=== PATIENT | female | born 1940 | race Caucasian/White ===

== ENCOUNTER 2022-07-15 14:20 | Outpatient (CLI) | payer MEDICARE, BC, SELFPAY ==
[2022-07-15 14:36] LABS: Albumin* 4.5 g/dL (3.3-5.0); Chloride* 96 mmol/L (96-114)
[2022-07-15 14:37] LABS: Potassium* 4.2 mmol/L (3.6-5.1); Sodium* 132 mmol/L (135-149)
[2022-07-15 14:39] LABS: Aspartate Amino Transferase* 32 U/L (12-35); Blood Urea Nitrogen* 20 mg/dL (7-30); Carbon Dioxide* 25 mmol/L (20-32); Cholesterol* 151 mg/dL (90-199); Creatinine* 0.8 mg/dL (0.5-1.5); Estimated Glomerular Filt Rate 75 ml/min; Glucose* 112 mg/dL (60-115); Total Protein* 7.4 g/dL (6.0-8.3); Triglycerides* 81 mg/dL (40-149)
[2022-07-15 14:40] LABS: Alanine Aminotransferase* 32 U/L (4-35); Alkaline Phosphatase* 90 U/L (40-150); Calcium* 11.2 mg/dL (8.4-10.6); HDL Cholesterol* 46 mg/dL (>=50); LDL Cholesterol Calculated 89 mg/dL (<100)
== END 2022-07-15 14:21 | disposition home or self-care (01) ==
PROVIDERS: PCP Family Medicine; Visit Provider Family Medicine
DX: Z00.00 Encounter for general adult medical examination without abnormal findings (principal); E78.5 Hyperlipidemia, unspecified; F41.9 Anxiety disorder, unspecified; G47.00 Insomnia, unspecified
CPT/HCPCS: 80053; 80061

== ENCOUNTER 2022-09-26 09:13 | Outpatient (CLI) | payer MEDICARE, BC, SELFPAY ==
--- NOTE | 2022-09-26 09:45 | CRLHL7_ITS ---
For Patients: As a result of the Cures Act, medical imaging exams and procedure reports are released immediately into your electronic medical record. You may view this report before your referring provider. If you have questions, please contact your health care provider. BILATERAL SCREENING MAMMOGRAM WITH COMPUTER-AIDED DETECTION AND TOMOSYNTHESIS TECHNIQUE: CC and MLO views were obtained. These mammographic images have been obtained using full-field digital technique. These mammographic images were interpreted with the benefit of computer-aided detection. Breast Tomosynthesis was used in this interpretation. COMPARISON FILM: 08/17/21, 08/16/20, 07/22/19. FINDINGS: There are scattered areas of fibroglandular density IMPRESSION: There is no radiographic evidence for malignancy. ASSESSMENT: BI-RADS Category 1: Negative RECOMMENDATION: Routine screening mammogram in 1 year. A lay language report of this examination will be provided to the patient. Daniel Dent M.D. Diagnostic Radiologist [email or web address] Transcribed: 7:50 p.m. MJ/Dictated by: Daniel Dent MD @ 09/26/2022 11:53:00 AM (Electronically Signed)
== END 2022-09-26 09:14 | disposition home or self-care (01) ==
LOC: MAMMO 09:13
PROVIDERS: PCP Family Medicine; Visit Provider Family Medicine
DX: Z12.31 Encounter for screening mammogram for malignant neoplasm of breast (principal)
CPT/HCPCS: 77063; 77067

== ENCOUNTER 2022-12-16 10:07 | Outpatient (CLI) | payer MEDICARE, BC, SELFPAY ==
[2022-12-16 14:31] LABS: Vitamin D 25 Hydroxy* 70 ng/mL (30-80)
[2022-12-16 14:37] LABS: Chloride* 97 mmol/L (96-114)
[2022-12-16 14:38] LABS: Albumin* 4.5 g/dL (3.3-5.0); Potassium* 4.2 mmol/L (3.6-5.1); Sodium* 132 mmol/L (135-149)
[2022-12-16 14:40] LABS: Carbon Dioxide* 24 mmol/L (20-32); Cholesterol* 139 mg/dL (90-199)
[2022-12-16 14:41] LABS: Alanine Aminotransferase* 42 U/L (4-35); Alkaline Phosphatase* 75 U/L (40-150); Aspartate Amino Transferase* 37 U/L (12-35); Bilirubin Total* 1.2 mg/dL (0.1-1.5); Blood Urea Nitrogen* 15 mg/dL (7-30); Calcium* 11.3 mg/dL (8.4-10.6); Creatinine* 0.7 mg/dL (0.5-1.5); Estimated Glomerular Filt Rate 87 ml/min; Glucose* 109 mg/dL (60-115); Total Protein* 7.2 g/dL (6.0-8.3); Triglycerides* 60 mg/dL (40-149)
[2022-12-16 14:42] LABS: HDL Cholesterol* 60 mg/dL (>=50); LDL Cholesterol Calculated 67 mg/dL (<100)
[2022-12-16 14:45] LABS: TSH With Reflex to FT4* 0.443 uIU/mL (0.270-4.200)
[2022-12-16 15:07] LABS: Creatinine Urine 142.8 mg/dL
[2022-12-16 15:10] LABS: Microalbumin Creatinine Ratio 10 mg/g (0-30); Microalbumin Urine 2 mg/dL
[2022-12-21 16:21] LABS: Vitamin B1, Whole Blood 138 nmol/L (70-180)
== END 2022-12-16 10:08 | disposition home or self-care (01) ==
PROVIDERS: PCP Family Medicine; Visit Provider Family Medicine
DX: E78.5 Hyperlipidemia, unspecified (principal); I10 Essential (primary) hypertension; Z78.9 Other specified health status; R53.83 Other fatigue; M85.80 Other specified disorders of bone density and structure, unspecified site
CPT/HCPCS: 80053; 80061; 82043; 82306; 82570; 83735; 84425; 84443

== ENCOUNTER 2023-01-02 09:37 | Outpatient (CLI) | payer MEDICARE, BC, SELFPAY ==
[2023-01-02 14:03] LABS: Chloride* 100 mmol/L (96-114); Potassium* 4.1 mmol/L (3.6-5.1); Sodium* 137 mmol/L (135-149)
[2023-01-02 14:05] LABS: Creatinine* 0.6 mg/dL (0.5-1.5); Estimated Glomerular Filt Rate 91 ml/min
[2023-01-02 14:06] LABS: Blood Urea Nitrogen* 12 mg/dL (7-30); Calcium* 10.7 mg/dL (8.4-10.6); Carbon Dioxide* 26 mmol/L (20-32); Glucose* 103 mg/dL (60-115)
[2023-01-02 14:20] LABS: Ethanol* < 0.01 % (0.01-0.03)
[2023-01-04 02:13] LABS: Urine Osmolality 514 mOsm/kg (50-800)
== END 2023-01-02 09:38 | disposition home or self-care (01) ==
PROVIDERS: PCP Family Medicine; Visit Provider Family Medicine
DX: I10 Essential (primary) hypertension (principal); E87.1 Hypo-osmolality and hyponatremia; E78.5 Hyperlipidemia, unspecified; F41.9 Anxiety disorder, unspecified; F32.A Depression, unspecified; Z78.9 Other specified health status
CPT/HCPCS: 80048; 82077; 83935

== ENCOUNTER 2023-01-07 10:41 | Emergency (ER) | payer MEDICARE, BC, SELFPAY ==
--- NOTE | 2023-01-07 | CRLHL7_ITS ---
For Patients: As a result of the Century Cures Act, medical imaging exams and procedure reports are released immediately into your electronic medical record. You may view this report before your referring provider. If you have questions, please contact your health care provider. INDICATION: Fall. Occipital trauma. TECHNIQUE: CT of the head without contrast. Coronal and sagittal reformats are included. COMPARISON: None. FINDINGS: Motion artifact degrades the exam superiorly. Allowing for this, no acute intracranial hemorrhage is present. No mass effect/midline shift. No hydrocephalus or extra-axial collections. Patchy hypoattenuation within the supratentorial white matter, typical for chronic microvascular ischemic change. Ex vacuo dilatation of the ventricular system from generalized parenchymal volume loss. No acute osseous abnormalities. Mastoid air cells and paranasal sinuses are clear. A high right parietal scalp subgaleal hematoma. IMPRESSION: IMPRESSION: 1. Motion artifact degrades the exam superiorly. Allowing for this, no acute intracranial hemorrhage or other acute intracranial abnormalities. Please note that all CT scans at this facility use dose modulation, iterative reconstruction, and/or weight-based dosing when appropriate to reduce radiation dose to as low as reasonably achievable. Dictated by Adolfo Benedict MD @ 01/07/2023 12:22:20 PM (Electronically Signed)
[2023-01-07 10:55] VITALS: BP 192/113; PULSE 84; RESP 18; TEMP 36.8; O2SAT 98; BMI 26.9
--- NOTE | 2023-01-07 10:58 | ED_ITS ---
HPI - Fall General Time Seen by Provider: 10:58 Date Seen: 01/07/23 Chief Complaint: Fall/Minor Trauma Stated Complaint: Fall/hit head Time Seen by Provider: 01/07/23 10:58 Source: patient, family, RN notes reviewed and old records reviewed Mode of arrival: wheelchair Limitations: no limitations History of Present Illness HPI Narrative: Patient is a very pleasant 82-year-old female with a history of multiple orthopedic surgeries, hypertension, anxiety, hyperlipidemia who comes to the emergency room for evaluation after a fall. It appears that patient was initia alonsoy coming for an outpatient head CT secondary to hyponatremia who fell in the parking lot of our facility. She did not lose consciousness. They did have a rapid response team that brought her directly to the emergency room. She presents with her . Nursing staff very concerned as patient is starting to ask repetitive questions. Patient tells me that she was walking in and went to step up onto the curb when she fell falling backwards striking her head. She remembers the event. She did not lose consciousness. She denies any visual changes including blurriness. She notes that the back of her head hurts and she has a bump there. She denies any neck pain. She has no prodromal symptoms to include chest pain or shortness of breath. She denies back injury or pain in the hips or buttocks. She denies any numbness or tingling at this time. At this time we do access further information via last note. Primary MD Dr. Parekh has concerns in her note regarding patient's alcohol use. Appears that she has been dealing with hyponatremia and she was here for outpatient head CT because of this. Related Data Home Medications Medication Instructions Recorded Confirmed acetaminophen 500 mg tablet 500 mg PO Q6H PRN 07/17/22 01/07/23 (Tylenol Extra Strength) aspirin 325 mg tablet 325 mg PO QDAY PRN 07/17/22 01/07/23 calcium carbonate 600 mg-vitamin cap PO 07/17/22 01/02/23 D3 10 mcg (400 unit) capsule multivit with 1 tab PO QDAY 07/17/22 01/02/23 ihyaxcet-oguy-DM-lutein 8 mg iron-400 mcg-300 mcg tablet (Centrum Silver Women) naproxen sodium 220 mg capsule 220 mg PO QDAY PRN 07/17/22 01/02/23 (Aleve) trazodone 50 mg tablet mg 01/07/23 Previous Rx's Medication Instructions Recorded albuterol sulfate 90 mcg/actuation 1 puff inhalation Q4H PRN 07/17/22 aerosol inhaler (ProAir HFA) shortness of breath or wheezing #8.5 grams amoxicillin 500 mg capsule 2,000 mg PO QDAY PRN dental 07/17/22 prophylaxis #12 caps atorvastatin 10 mg tablet 10 mg PO QPM #90 tabs 07/17/22 losartan 25 mg tablet 25 mg PO QDAY #90 tabs 07/17/22 lorazepam 0.5 mg tablet 0.25 mg PO QDAY PRN anxiety #26 12/05/22 tabs metoprolol succinate 25 mg 12.5 mg PO BID #30 tabs 01/02/23 tablet,extended release 24 hr sertraline 50 mg tablet 50 mg PO QDAY #30 tabs 01/02/23 Allergies Allergy/AdvReac Type Severity Reaction Status Date / Time nickel Allergy Mild Rash Verified 01/02/23 09:00 oxycodone Allergy Mild Rash, Verified 01/02/23 09:00 itching severe Review of Systems Status of ROS: Reports: 10 or more systems reviewed and unremarkable except as noted in History and below Const: Denies: fever or chills Eyes: Denies: change in vision or blurry vision ENMT: Denies: throat pain, neck pain, throat swelling, difficulty swallowing or hoarseness Cardio: Denies: chest pain, palpitations, swelling of feet/ankles, lightheadedness or shortness of breath with exertion Resp: Denies: shortness of breath or cough GI: Denies: abdominal pain, nausea, vomiting, diarrhea or difficulty swallowing : Denies: painful urination Musculo: Denies: back pain, neck pain, extremity pain or extremity swelling Neuro: Denies: headache, numbness in extremities, weakness in extremities, lack of coordination or dizziness Psych: Reports: anxiety Allergy/Immuno: Denies: throat swelling [facility] Medical History Carpal tunnel syndrome (08/06/11) Closed fracture of multiple ribs (04/27/13) Orthostatic hypotension Traumatic pneumohemothorax 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) Surgical History History of bilateral cataract extraction History of breast biopsy History of colonoscopy History of nasal septoplasty (08/06/11) History of repair of rotator cuff (08/06/11) History of right shoulder replacement 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) History of total knee replacement (05/01/10) Joint replaced Status post bunionectomy (08/06/11) Family History Other Alzheimers disease CHF (congestive heart failure) Social History Narrative: Non-smoker Smoking Status: Never smoker Do you use any of these nicotine containing products: None Second hand tobacco smoke exposure: No How often do you have a drink containing alcohol: 4 or more times a week How many standard drinks containing alcohol do you have on a typical day: 1 or 2 AUDIT-C Alcohol total score: 4 Non-prescribed substance use: denies use Little interest or pleasure in doing things: more than half the days Feeling down, depressed, or hopeless: more than half the days service: No Exam Narrative: Exam Narrative: Patient is a very pleasant 82-year-old female. She does have some repetitive statements regarding a head CT and the fact that she fell. Otherwise she is articulate and answering questions appropriately. GCS is 15. EOM is full and pupils are equal round reactive. Patient has a metzger tomatoes size soft tissue swelling on the posterior parietal scalp. No compromise of the skin. Range of motion of her neck is full and she has no midline cervical tenderness. Heart is with regular rate and rhythm and lungs are clear to auscultation bilaterally Palpation down thoracic and lumbar spine without discomfort. I do not note any ecchymosis at this time. No crepitus on chest wall. Moving all extremities. Strength and motor is intact. Face is symmetrical eyebrow raise intact. Sensation is intact. Const: Vital Signs, click to edit/add: Vital Signs - 24 hr 01/07/23 10:55 01/07/23 11:12 01/07/23 11:47 Temperature 98.2 F Pulse Rate [Pulse Oximeter] 84 78 78 Respiratory Rate 18 16 16 Blood Pressure [Le ft Upper Arm] 192/113 H 202/108 H 191/97 H Pulse Oximetry 98 98 98 Oxygen Delivery Me thod Room Air Room Air Room Air 01/07/23 12:53 01/07/23 13:35 Temperature Pulse Rate [Pulse Oximeter] 78 78 Respiratory Rate 16 16 Blood Pressure [Le ft Upper Arm] 174/107 H 175/99 H Pulse Oximetry 98 98 Oxygen Delivery Me thod Room Air Room Air Documenting provider has reviewed patient's vital signs: yes Course Course Hospital Course: We will start with head CT on this patient who is not on blood thinners and had no loss of consciousness but does have a history of alcohol use and given her age I think that this is a necessary thing to rule out any intracranial abnormality. Further she was due for a head CT this morning. I did ascertain that it was without contrast. Given her history of hyponatremia and alcohol use will also check labs to include CBC, LFTs, Chem panel, ETOH and urinalysis. Differential diagnosis includes closed head injury, intracranial bleed, skull fracture, soft tissue injury, hyponatremia, alcohol intoxication, fall. Patient denies any prodromal symptoms. Reevaluation(s) Reevaluation #1: Patient doing well. Has not had any issues with repeating questions after she returns from CT. Awaiting laboratory values. Reevaluation #2: Blood pressure noted to be persistently elevated. Patient states that she did take her medications this morning. Will give her additional dose of metoprolol 12.5 mg p.o. as well as acetaminophen 650 mg p.o. Reevaluation #3: Blood pressure noted to be improved. It looks like it is near baseline 170s over 90s. Son is now present. I did go over results of head CT as well as laboratory values. All reassuring at this point. Vital Signs Vital signs: Initial Vital Signs Temperature 98.2 F 01/07/23 10:55 Temperature Source Temporal Artery Scan 01/07/23 10:55 Pulse Rate 84 01/07/23 10:55 Pulse Rhythm 01/07/23 10:55 Respiratory Rate 18 01/07/23 10:55 Blood Pressure 192/113 H 01/07/23 10:55 Blood Pressure Mean 139 01/07/23 10:55 Blood Pressure Position Sitting 01/07/23 10:55 Pulse Oximetry 98 01/07/23 10:55 Oxygen Delivery Method 01/07/23 10:55 Vital Signs Temperature 98.2 F 01/07/23 10:55 Pulse Rate 84 01/07/23 10:55 Respiratory Rate 18 01/07/23 10:55 Blood Pressure 192/113 H 01/07/23 10:55 Pulse Oximetry 98 01/07/23 10:55 Oxygen Delivery Method 01/07/23 10:55 Temperature 98.2 F 01/07/23 10:55 Pulse Rate 78 01/07/23 13:35 Respiratory Rate 16 01/07/23 13:35 Blood Pressure 175/99 H 01/07/23 13:35 Pulse Oximetry 98 01/07/23 13:35 Oxygen Delivery Method 01/07/23 13:35 MDM - Fall MDM Narrative Medical decision making narrative: 1. Closed head injury-no evidence of skull fracture or intracranial bleeding. Recommend monitoring over the next 24 hours at home. Seek medical attention for vomiting, problems with balance, problems with mentation or vision. Avoid alcohol over the next week. With the exception of repeated questioning in the initial 1/2 hour of visit patient has been normal in her interactions. Would recommend frequent checks over the next 24 hours and returning as needed. 2. History of alcohol abuse-alcohol level 0 today. Recommend abstinence. 3. History of hyponatremia-sodium 131 today. Appears to have been around 132 and then normal at 137 on last check. I did speak to patient about using salt in her diet but she says she does not like that. This time do not feel need for medical intervention. Would recommend follow-up with her primary MD for recheck. 4. Disposition-home with son and . Returns/seek medical attention for worsening symptoms. I did contact patient's primary in regards to today's visit. Medical Records Attestation: I reviewed the patient's medical records. Lab Data Attestation: I reviewed the patient's lab results. Labs: Lab Results 01/07/23 01/07/23 Range/Units 11:37 11:37 WBC 7.59 (4.50-11.00) K/uL RBC 3.98 L (4.00-5.20) m/uL Hgb 13.5 (12.0-16.0) gm/dL Hct 39.0 (33.0-51.0) % MCV 98 (80-100) fL MCH 34 (26-34) pg MCHC 35 (32-36) gm/dL RDW Coeff of Maris 12.2 (11.5-15.5) % Plt Count 281 (140-440) K/uL Neut % (Auto) 73.7 H (42.0-72.0) % Lymph % (Auto) 15.0 L (20-44) % Gila % (Auto) 9.6 (0.0-11.0) % Eos % (Auto) 1.2 (0.0-7.0) % Baso % (Auto) 0.4 (0.0-3.0) % Neut # (Auto) 5.60 (1.7-7.0) K/uL Lymph # (Auto) 1.10 (0.90-2.90) K/uL Gila # (Auto) 0.70 (0.00-0.90) K/UL Eos # (Auto) 0.09 (0.00-0.50) K/uL Baso # (Auto) 0.03 (0.00-0.30) K/uL Sodium 131 L (135-149) mmol/L Potassium 4.2 (3.6-5.1) mmol/L Chloride 99 (96-114) mmol/L Carbon Dioxide 24 (20-32) mmol/L BUN 10 (7-30) mg/dL Creatinine 0.5 (0.5-1.5) mg/dL Estimated Creat Clear 35.49 Estimated GFR 95 ml/min Glucose 129 H (60-115) mg/dL Calcium 10.4 (8.4-10.6) mg/dL Total Bilirubin 0.8 (0.1-1.5) mg/dL Direct Bilirubin 0.2 (0.0-0.5) mg/dL AST 42 H (12-35) U/L ALT 37 H (4-35) U/L Alkaline Phosphatase 68 (40-150) U/L Total Protein 7.3 (6.0-8.3) g/dL Albumin 4.4 (3.3-5.0) g/dL Ethyl Alcohol < 0.01 L (0.01-0.03) % Imaging Data CT scan - head: Attestation: I have reviewed the pertinent imaging results. My impression: I do not note any acute intracranial bleed or skull fracture. Radiologist's impression: Motion artifact degrades the exam superiorly. Allowing for this, no acute intracranial hemorrhage is present. No mass effect/midline shift. No hydrocephalus or extra-axial collections. Patchy hypoattenuation within the supratentorial white matter, typical for chronic microvascular ischemic change. Ex vacuo dilatation of the ventricular system from generalized parenchymal volume loss. No acute osseous abnormalities. Mastoid air cells and paranasal sinuses are clear. A high right parietal scalp subgaleal hematoma. IMPRESSION: ?IMPRESSION: ? 1. Motion artifact degrades the exam superiorly. Allowing for this, no acute intracranial hemorrhage or other acute intracranial abnormalities Discharge Plan Discharge Clinical Impression: Closed head injury, Fall, Chronic hyponatremia Patient Disposition: Home w/ Parent or Adult Condition: Improved Additional Instructions: Monitor for changes in mentation, personality, balance. Return to the emergency room if this would occur. Seek medical attention also for vomiting, visual changes and as needed. Avoid alcohol during this next week because of the head injury. Seek medical attention for new discomfort or pain. Tylenol may be used for discomfort as needed. Your head CT was negative for any fracture or bleeding today. Your sodium was 131 which is still slow somewhat low and should continue to be followed by your primary MD. Feel free to salt your foods. Follow-up with primary MD for recheck of blood pressure. Prescriptions: No Action aspirin 325 mg tablet 325 mg PO QDAY PRN naproxen sodium [Aleve] 220 mg capsule 220 mg PO QDAY PRN acetaminophen [Tylenol Extra Strength] 500 mg tablet 500 mg PO Q6H PRN calcium carbonate-vitamin D3 600 mg-10 mcg (400 unit) capsule PO Centrum Silver Women 8 mg iron-400 mcg-300 mcg tablet 1 tab PO QDAY atorvastatin 10 mg tablet 10 mg PO QPM Qty: 90 4RF losartan 25 mg tablet 25 mg PO QDAY Qty: 90 4RF albuterol sulfate [ProAir HFA] 90 mcg/actuation HFA aerosol inhaler 1 puff inhalation Q4H PRN (Reason: shortness of breath or wheezing) Qty: 8.5 1RF amoxicillin 500 mg capsule 2,000 mg PO QDAY PRN (Reason: dental prophylaxis) Qty: 12 2RF sertraline 50 mg tablet 50 mg PO QDAY Qty: 30 3RF metoprolol succinate 25 mg tablet extended release 24 hr 12.5 mg PO BID Qty: 30 1RF lorazepam 0.5 mg tablet 0.25 mg PO QDAY PRN (Reason: anxiety) Qty: 26 0RF Rx Instructions: 26 tablets must last one year; plan to wean from medication trazodone 50 mg tablet Label Comments: TAKE 1 TABLET BY MOUTH EVERY DAY NEEDED FOR INSOMNIA Follow Up/Referrals: Ana Parekh DO [Primary Care Provider] - Stand Alone [facility]: [facility] Info Instructions
[2023-01-07 11:12] VITALS: BP 202/108; PULSE 78; RESP 16; O2SAT 98
[2023-01-07 11:47] VITALS: BP 191/97; PULSE 78; RESP 16; O2SAT 98
[2023-01-07 11:55] LABS: Basophils Absolute Auto 0.03 K/uL (0.00-0.30); Basophils Percent Auto 0.4 % (0.0-3.0); Eosinophils Absolute Auto 0.09 K/uL (0.00-0.50); Eosinophils Percent Auto 1.2 % (0.0-7.0); Hemoglobin* 13.5 gm/dL (12.0-16.0); Immature Granulocytes Abs Auto 0.01 K/uL (0.00-0.30); Immature Granulocytes Pct Auto 0.1 %; Mean Corpuscular HGB Conc 35 gm/dL (32-36); Mean Corpuscular Hemoglobin 34 pg (26-34); Mean Corpuscular Volume 98 fL (80-100); Monocytes Percent Auto 9.6 % (0.0-11.0); Neutrophils Percent Auto 73.7 % (42.0-72.0); Platelet Count* 281 K/uL (140-440); RDW Coefficient of Variation % 12.2 % (11.5-15.5); Red Blood Count 3.98 m/uL (4.00-5.20); White Blood Count* 7.59 K/uL (4.50-11.00)
[2023-01-07 12:02] LABS: Slide Review Reflex No
[2023-01-07 12:08] LABS: Albumin* 4.4 g/dL (3.3-5.0)
[2023-01-07 12:09] LABS: Chloride* 99 mmol/L (96-114); Potassium* 4.2 mmol/L (3.6-5.1); Sodium* 131 mmol/L (135-149)
[2023-01-07 12:11] LABS: Aspartate Amino Transferase* 42 U/L (12-35); Bilirubin Direct* 0.2 mg/dL (0.0-0.5); Bilirubin Total* 0.8 mg/dL (0.1-1.5); Carbon Dioxide* 24 mmol/L (20-32); Creatinine* 0.5 mg/dL (0.5-1.5); Est. Creatinine Clearance* 35.49; Estimated Glomerular Filt Rate 95 ml/min; Total Protein* 7.3 g/dL (6.0-8.3)
[2023-01-07 12:12] LABS: Alanine Aminotransferase* 37 U/L (4-35); Alkaline Phosphatase* 68 U/L (40-150); Blood Urea Nitrogen* 10 mg/dL (7-30); Calcium* 10.4 mg/dL (8.4-10.6); Glucose* 129 mg/dL (60-115)
[2023-01-07 12:16] LABS: Ethanol* < 0.01 % (0.01-0.03)
[2023-01-07] MEDS: METOPROLOL TARTRATE 25 MG TABLET 12.5 MG PO (12:51)
[2023-01-07] MEDS: ACETAMINOPHEN 325 MG TABLET 650 MG PO (12:51)
[2023-01-07 12:53] VITALS: BP 174/107; PULSE 78; RESP 16; O2SAT 98
[2023-01-07 13:35] VITALS: BP 175/99; PULSE 78; RESP 16; O2SAT 98
--- NOTE | 2023-01-07 13:37 | ED.NURSE ---
Tolerated a half a sandwich. Recheck DIVYA PHILIP notified.
--- NOTE | 2023-01-07 13:51 | ED.NURSE ---
patient unable to void during her stay. Did tolerate food and water without nausea. Does feel some unbalanced but was able to stand and pivot and take a few steps. Son was present and driving patient and her home. Patients son verbalized that discussions of moving into an commercial escrow assistant living have been occuring.
== END 2023-01-07 13:53 | disposition home or self-care (01) ==
PROVIDERS: Emergency Provider Family Medicine; PCP Family Medicine
DX: S09.90XA Unspecified injury of head, initial encounter (principal); E87.1 Hypo-osmolality and hyponatremia; W19.XXXA Unspecified fall, initial encounter
CPT/HCPCS: 36415; 70450; 80048; 80076; 81001; 82077; 85025; 99284; 99285; A9270

== ENCOUNTER 2023-04-03 06:27 | Outpatient (CLI) | payer MEDICARE, BC, SELFPAY ==
[2023-04-03 06:53] VITALS: BP 194/101; PULSE 79; RESP 16; O2SAT 99
--- NOTE | 2023-04-03 07:47 | PM.ORPRC ---
Procedure Note Date of procedure: 04/03/23 Procedure: SURGEON: Ace James MD LABEL PRESS OPERATOR: Gilma Macias PA-C PREOPERATIVE DIAGNOSIS: Left hip abductor tendinopathy/greater trochanteric bursitis POSTOPERATIVE DIAGNOSIS: Left hip abductor tendinopathy/greater trochanteric bursitis NAME OF OPERATION: Percutaneous tenotomy ANESTHESIA: Local ESTIMATED BLOOD LOSS: 2 mL. COMPLICATIONS: None. SPECIMENS: None. DRAINS: None. PREOPERATIVE ANTIBIOTICS: None INDICATIONS: The patient is a 82-year-old with a history of left hip pain secondary to the above diagnoses. Despite appropriate non operative management, they continue to have symptoms. Operative intervention was recommended. The risks, benefits and expected outcomes were discussed in detail. These included but were not limited to: Infection, bleeding, injury to blood vessel or nerve, venous thromboembolism. All questions were answered to their satisfaction. PROCEDURE: The patient was placed in the lateral decubitus position. The left hip was imaged in the long and short axes with the ultrasound transducer. Normal acoustic landmarks were identified. We then sterilely prepped and draped the skin, and used a sterile probe cover with sterile gel. Local anesthesia was established with 10 mL of a solution containing 2 % lidocaine without epinephrine, 0.5% Marcaine without epinephrine and sodium bicarbonate. An 11 blade was used to incise the skin. The Tenex TX 2 micro tip was used to treat the abductor tendon for a total of 4 minutes and 28 seconds. The incision was Steri-Stripped closed. A dry dressing was applied. Sponge and needle counts were correct x2. The patient tolerated the procedure well. There were no apparent complications. They were discharged to home in satisfactory condition. PLAN: The patient may weightbear as tolerates. Tylenol can be used for pain/discomfort. They may ramp up activity as the hip will allow. They will follow up in the office in 6 weeks to assess their progress. For
[2023-04-03 07:48] VITALS: BP 155/116; PULSE 77; RESP 16; O2SAT 99
== END 2023-04-03 07:54 | disposition home or self-care (01) ==
PROVIDERS: PCP Family Medicine; Visit Provider Orthopaedic Surgery
DX: M70.62 Trochanteric bursitis, left hip (principal); M76.892 Other specified enthesopathies of left lower limb, excluding foot
CPT/HCPCS: 27006; 76942; J3490

== ENCOUNTER 2023-06-30 10:17 | Outpatient (CLI) | payer MEDICARE, BC, SELFPAY | END 2023-06-30 10:18 | disposition home or self-care (01) | PROVIDERS: PCP Family Medicine; Visit Provider Family Medicine | DX: R63.4 Abnormal weight loss (principal); I10 Essential (primary) hypertension; E78.5 Hyperlipidemia, unspecified; E87.1 Hypo-osmolality and hyponatremia | CPT/HCPCS: 80053; 82043; 82077; 82570; 84443; 86140 ==

== ENCOUNTER 2023-07-08 11:00 | Outpatient (RCR) | payer MEDICARE, BC, SELFPAY ==
--- NOTE | 2023-05-20 12:52 | PT.OPE ---
PT Ericka Outpatient Eval PT [facility] Outpatient Eval Start: 05/20/23 12:26 Freq: Status: Active Protocol: Document 05/20/23 12:27 ANGE (Rec: 05/20/23 12:48 ANGE Desktop) E-signed By Eliel Hector, PT, ATC Physical Therapy Outpatient Evaluation Insurance Information Insurance Name Medicare B Medical Diagnosis M70.72 other bursitis of hip, left Z98.890 other specified postprocedural states. Treating Diagnosis L hip pain Referring MD James Subjective Subjective L hip percutaneous tenotomy 10/16. Long history of intense left lateral hip pain-tendonits and bursitis prior to procedure in March. Symptoms have not improved at all since the procedure. All WB'ing and active L hip motion creates discomfort. Unable to lay upon the L hip in bed and struggles with bed mobility. Using cold packs, Tylenol and Advil for pain yet none seem to make improvement. Frustrated she wasn't prescribed a pain killer. She currently resides by herself in her home with care provision as needed from her child. in in a memory care unit. She drove herself to treatment today but hadn't driven in many weeks. PMHx includes L and R TKA's, L RANJITH an a partial L shld replacement. Pain Comments High /10 Low 03/03 Date of Last Physician Visit 05/14/23 Date of Surgery (If applicable) 04/03/23 Current Work Status Retired,Unemployed Preferred Name Holley Precautions Treatment Precautions/Contraindications Note: Holley appeared very depressed and easily upset/ emotional. I think the relentless hip pain coupled with committing her to a memory care center are the major contributing factors. Weight Bearing Status Non-Weight Bearing Therapy Limitations/Systems Review Not Limited Objective Range of Motion PROM R and L hip WFL's L hip horizontal adduct and ER end range were pain producing . Strength L hip ABD and FLEX weakness, 4 /5 and pain producing. Swelling Non evident. Palpation Very tender over L hip gluteal muscles-gluteus medius, justyna, minimus, piriformis and TFL. Tightness felt through L ITB complex. Balance & Gait Walks with shortened stride length, hip hikes on both sides and L lateral lean with L WB'ing. Posture L knee valgus-moderate. Assessment Assessment/Impression Holley is well known in PT from previous attendance for herself and when accompanying her with his care. She does not appear to be doing well with her recovery following L hip percutaneous tenotomy on 04/03/23. I feel her depression has added to the difficulty with recovery. Skilled PT is recommended to address her L hip pain, the soft tissue tightness in the L gluteal/hip complex as well as weakness present. She benefitted from todays manual therapy of soft tissue manipulation, passive stretching and eccentric hip ABD exercise. Primary Functional Limitations All transfers and bed mobility . Standing to prepare meals. Walking Stair ascent/descent Self care. Plan of Care Rehabilitation Potential Fair Physical Therapy Goals 1.Reduce L lateral hip pain x 50% permitting improved ability with hip AROM during transfers and bed mobility. 2.To walk x 500 feet with increased R and L LE stride length, more upright trunk position and less left lateral lean. 3.To stand x 10 min.s while preparing meals with pain of 4 /10 or less. Coordination/Communication With Referral Source Treatment Plan/Direct Interventions Electrical Stimulation,Gait Training,Ice/Cold/ Vasopneumatic,Joint Mobilization,Manual Therapy, Self-Care/Home Management, Therapeutic Activities, Therapeutic Exercises, Ultrasound Frequency/Duration 1-2x per week 8-12 weeks Patient Will Be Discharged From Therapy Independent w/HEP, Independently Progressing Evaluation Billing Untimed Code Treatment Minutes 30 PT Eval No Charge No Complexity Low Certification Information Initial Certification Date 05/20/23 Ending Certification Date 08/20/23 Provider Signature Shows Agreement With POC & Medical Necessity Physician Signature & Date Requested Please Sign/Date Here Physician Comment/Change : Physician NPI Number #
--- NOTE | 2023-07-09 16:32 | OT.OPGNE ---
OT Outpatient General/Neuro Eval OT Outpatient General/Neuro Eval Start: 07/08/23 17:50 Freq: Status: Active Protocol: Document 07/08/23 17:51 CHRIS (Rec: 07/08/23 18:09 CHRIS Desktop) E-signed By Shaila Jason OTR/L, CLT OT Outpatient Evaluation Details Type Type Eval Complexity Medium Insurance Information Insurance Information Insurance Information [employer] Outpatient History/Precautions Medical/Functional History Medical History Reviewed Yes Prior Level of Function/Mobility Patient ambulates w/o AD, although she should be using a walker at all times and falls frequently. Shuffle gait with freezing episodes that has a Parkinson's like pattern Patient reports that she holds on to anything and everything and deeply fearful of falling (*had a fall yesterday at the doctor's office: copy of nurses note: Today upon arrival at the clinic, she reached forward to press the handicap button to open the door and fell backwards onto her back side. She did not hit her head on the way down. She was able to get up with 2 people assistance and feels nervous while walking now. *Patient drove herself to and from todays apt. Current Condition Date of Onset unknown, patient scheudled for brain/head MRI on 07/15/23 Physician Authorized Visits Ana Parekh DO Social History Type of Dwelling Townhouse Lives With: Alone Employment Status Retired Hobbies Watching TV, reading, going out to eat (but currently not doing) Oriented Patient Orientation Person,Place,Time Precautions General Precautions Patient was unable to name all her medications, DIL fills her medication box. Per patient report, she does not forget to take her medications . acetaminophen (Tylenol Extra Strength) 500 mg PO Q6H PRN albuterol sulfate 90 mcg/ actuation (ProAir HFA) 1 puff inhalation Q4H PRN amoxicillin 2,000 mg (4 x 500 mg) PO QDAY PRN aspirin 325 mg PO QDAY PRN atorvastatin 10 mg PO QPM calcium carbonate-vitamin D3 600 mg-10 mcg (400 unit) caps PO food supplemt, lactose-reduced (Ensure Active High Protein oral liquid) 1 ea PO TIDWMEAL ibuprofen 200 mg PO Q6H PRN lorazepam 0.25 mg (1/2 x 0.5 mg) PO QDAY PRN losartan 25 mg PO QDAY metoprolol succinate ER 12.5 mg (1/2 x 25 mg) PO BID kfeykfvt-mda-zgld-FA-vit K-lut 8 mg iron-400 mcg-50 mcg ( Centrum Silver Women) 1 tab PO QDAY sertraline 50 mg PO QDAY Prior Medical History Prior Medical History 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 James) Z98.890 - Other specified postprocedural states (ICD-10) Alcohol use (Acute) Daily drinker Z78.9 - Other specified health status (ICD-10) Osteopenia (Acute 05/01/10) M85.80 - Other specified disorders of bone density and structure, unspecified site ( ICD-10) Osteoarthritis of both thumbs (Chronic) [facility] M18.0 - Bilateral primary osteoarthritis of first carpometacarpal joints (ICD-10 ) Insomnia (Acute 05/01/10) G47.00 - Insomnia, unspecified (ICD-10) Hyponatremia (Acute 05/01/10) E87.1 - Hypo-osmolality and hyponatremia (ICD-10) Hypertension (Acute 05/01/10) I10 - Essential (primary) hypertension (ICD-10) Hyperlipidemia (Acute 05/01/10 ) E78.5 - Hyperlipidemia, unspecified (ICD-10) Asthma (Acute 08/06/11) Well controlled J45.909 - Unspecified asthma, uncomplicated (ICD-10) Anxiety (Acute 05/01/10) EMA, worsened by adjustment disorder with with dementia F41.9 - Anxiety disorder, unspecified (ICD-10) Patient Subjective Subjective Patient Subjective I know I'm here so you can give me a cognitive test Balance Assessment Comments Balance Comments Falls Self Efficacy Scale 42 points on EVAL HIGH RISK FOR FALLS-falls multiple times per week Home Maintenance Assessment ADL Oral Care Ability Independent Bathing Ability Independent Eating (Feeding) Ability Independent Upper Body Dressing Ability Independent Lower Body Dressing Ability Independent Grooming Ability Independent Toileting Ability Independent Ambulation Ability Independent Home Management Meal Preparation Ability Independent Cleaning Ability Moderate Assistance Shopping Ability Moderate Assistance Assistance Assistance Currently Received Son and USMAN are helping with IADLs, dropping off items, running errands. Vision/Hearing Vision Tracking WNL Saccades WNL Near Point of Convergence WNL Vision Changes Low Vision Vision Changes Comments Wears glasses Hearing Hearing Hard of Hearing Assessment Assessment Assessment 82 year old female, referred to OT for Cognitive testing and overall health management after undergoing multiple life changes and event ( moved into memory [facility] unit at [facility] this spring). PLAN: Through skilled therapy intervention that will include cognitive testing, balance, fall prevention, education/ teaching/training and development of a HEP, patient will be able to return to meaningful roles through physical, cognitive, mental and social interventions for greater quality of life and in order to remain living in the least restrictive environment (patient wishes to remain living independent in her townhouse). Occupational Therapy Treatment Plan - OP Potential Rehabilitation Potential Good Set Goals Goals Set with Patient Yes Goals Goals GOAL 1: The patient will actively engage in cognitive assessments (such as the CPT) to determine level of functional problem solving and safety awareness relative to discharge recommendations. ( MOCA on EVAL was ) GOAL 2: Patient will improve dual task ability as demonstrated by ability to carry a glass of water without spillage and no LOB for 30 feet distances. GOAL 3: Patient to demonstrate improvement in limits of stability in forward directions as evidenced by 25% improvement in functional reach score and decrease losses of balance and falls while engaging in activities that require reaching such as cooking, dressing and laundry. GOAL 4: Patient will demonstrate a lower risk for falls as evident by a lower score on the Falls Self Efficacy Scale ( 42 points on EVAL) Treatment Plan Treatment Plan Evaluation,Manual Therapy, Therapeutic Exercise,Self-Care /Home Management,Caregiver Training,Education,Functional Cognitive Skil,Neuromuscular Reeducation Expected Frequency 1-2x Week Expected Duration 8-10 Weeks Comment Summary Falls Self Efficacy Scale 42 points on EVAL Certification Certification I Certify That: Therapy Services Provided, Therapy Plan Established, Therapy Plan Reviewed Recertification Information Recertification Information Initial Certification Date 07/08/23 Recertification Due Date 10/06/23 Provider Signature Shows Agreement With POC & Medical Necessity Physician Comment/Change Comment or Changes Physician NPI Number #
== END 2023-10-09 15:19 | disposition home or self-care (01) ==
PROVIDERS: PCP Family Medicine; Visit Provider Family Medicine
DX: M70.72 Other bursitis of hip, left hip (principal); F10.27 Alcohol dependence with alcohol-induced persisting dementia; R63.4 Abnormal weight loss; Z98.890 Other specified postprocedural states; M25.552 Pain in left hip; Z51.89 Encounter for other specified aftercare
CPT/HCPCS: 97110; 97140; 97161; 97166; 97530; 97535

== ENCOUNTER 2023-07-15 09:49 | Outpatient (CLI) | payer MEDICARE, BC, SELFPAY ==
--- NOTE | 2023-07-15 10:15 | CRLHL7_ITS ---
For Patients: As a result of the Century Cures Act, medical imaging exams and procedure reports are released immediately into your electronic medical record. You may view this report before your referring provider. If you have questions, please contact your health care provider. INDICATION: Dementia. COMPARISON: 01/07/2023. TECHNIQUE: Multiplanar T1, T2, FLAIR and diffusion-weighted imaging. FINDINGS: Mild generalized volume loss more pronounced about the inferior frontal lobes, temporal lobes common sylvian fissures. Disproportionate moderate dilatation of the lateral and 3rd ventricles. T2/FLAIR signal hyperintense along the margins of the lateral ventricles may represent transependymal CSF flow. On axial T2 weighted imaging, there is a flow-void within the sylvian aqueduct suggesting hyperdynamic flow. Overall, findings may represent changes of chronic compensated hydrocephalus or normal pressure hydrocephalus in the correct clinical setting. Scattered patchy foci of T2/FLAIR signal hyperintense within the white matter both supra hemispheres consistent with chronic deep white matter small vessel ischemic changes. No intracranial hemorrhage. Intracranial vascular flow voids are preserved. No mass effect or midline shift. No restricted diffusion to suggest acute ischemia. No susceptibility artifact of remote hemorrhage. Bilateral orbits are unremarkable. Normal appearing sella. Visualized paranasal sinuses and mastoid air cells are unremarkable. IMPRESSION: 1. No acute intracranial abnormality. 2. Mild generalized volume loss and disproportionate moderate dilatation of the lateral 3rd ventricles. 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 3. Chronic deep white matter small vessel ischemic changes. 4. No acute or chronic intracranial hemorrhage Dictated by Rashawn Townsend MD @ 07/15/2023 2:49:42 PM (Electronically Signed)
--- NOTE | 2023-07-15 11:00 | CRLHL7_ITS ---
For Patients: As a result of the Century Cures Act, medical imaging exams and procedure reports are released immediately into your electronic medical record. You may view this report before your referring provider. If you have questions, please contact your health care provider. HISTORY: Left hip pain. TECHNIQUE: Noncontrast CT of the left hip. COMPARISON: Radiographs 03/17/2023. FINDINGS: There is a left total hip arthroplasty. There is a superior lateral position of the femoral head within the acetabular component noted on coronal image #17 of series 5, a finding seen with polyethylene wear. Area of osteolysis is noted involving the anterior superior to superior lateral acetabulum spanning an approximately 3 cm anterior/posterior by 2.5 cm medial/lateral by 1.2 cm craniocaudad extent. There is prominent anteversion of the acetabular component which may indicate that it is frankly loose and has rotated. On the femoral side, there is some bony erosion involving the medial aspect of the greater trochanter along the proximal margin of the prosthesis. Similar finding is present along the proximal medial margin of the femoral component with both areas likely reflecting limited osteolysis. The femoral component does not appear frankly detached. There is no acute periprosthetic fracture. - On the contralateral right side, there is a total hip arthroplasty. There also findings suggesting polyethylene wear on that side. There is some lucency involving the superior lateral acetabulum possibly indicating osteolysis. The right-sided prosthesis is not fully evaluated by this left hip CT. - Degenerative changes of the pubic symphysis and sacroiliac joints. Colonic diverticulosis. Uterine calcifications likely relate to calcified fibroids. IMPRESSION: 1. 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 No acute periprosthetic fracture. Given the orientation of the acetabular component it may be loose and may have rotated previously. 2. On the contralateral right side, there also findings of polyethylene wear and potentially osteolysis of the acetabulum. The right hip replacement is not fully evaluated by this left hip CT. Please note that all CT scans at this facility use dose modulation, iterative reconstruction, and/or weight-based dosing when appropriate to reduce radiation dose to as low as reasonably achievable. Dictated by Vivek Huffman MD @ 07/15/2023 4:16:01 PM (Electronically Signed)
== END 2023-07-15 09:50 | disposition home or self-care (01) ==
LOC: MRI 09:50
PROVIDERS: PCP Family Medicine; Visit Provider Family Medicine
DX: F03.90 Unspecified dementia, unspecified severity, without behavioral disturbance, psychotic disturbance, mood disturbance, and anxiety (principal); I67.82 Cerebral ischemia; M25.552 Pain in left hip
CPT/HCPCS: 70551; 73700

== ENCOUNTER 2023-08-21 13:41 | Outpatient (REF) | payer MEDICARE, BC, SELFPAY ==
[2023-08-21 14:05] LABS: Basophils Absolute Auto 0.03 K/uL (0.00-0.30); Basophils Percent Auto 0.7 % (0.0-3.0); Eosinophils Percent Auto 2.2 % (0.0-7.0); Hematocrit 40.3 % (33.0-51.0); Immature Granulocytes Abs Auto 0.01 K/uL (0.00-0.30); Immature Granulocytes Pct Auto 0.2 %; Lymphocytes Absolute Auto 1.04 K/uL (0.90-2.90); Lymphocytes Percent Auto 22.9 % (20-44); Mean Corpuscular HGB Conc 32 gm/dL (32-36); Mean Corpuscular Hemoglobin 31 pg (26-34); Mean Corpuscular Volume 96 fL (80-100); Monocytes Percent Auto 13.7 % (0.0-11.0); Neutrophils Absolute Auto 2.74 K/uL (1.7-7.0); Neutrophils Percent Auto 60.3 % (42.0-72.0); Platelet Count* 402 K/uL (140-440); RDW Coefficient of Variation % 15.1 % (11.5-15.5); Red Blood Count 4.19 m/uL (4.00-5.20); White Blood Count* 4.54 K/uL (4.50-11.00)
[2023-08-21 14:18] LABS: Slide Review Reflex No
[2023-08-21 14:33] LABS: C Reactive Protein* < 0.5 mg/dL (0.5-1.0)
[2023-08-21 15:55] LABS: Erythrocyte SedimentationRate* 7 mm/hr (2-20)
== END 2023-08-21 13:42 | disposition home or self-care (01) ==
LOC: NPINS 13:41
PROVIDERS: PCP Family Medicine
DX: M25.552 Pain in left hip (principal)
CPT/HCPCS: 85025; 85651; 86140

== ENCOUNTER 2023-10-09 11:16 | Emergency (ER) | payer MEDICARE, BC, SELFPAY ==
[2023-10-09 11:26] VITALS: BP 136/77; PULSE 103; RESP 18; TEMP 37.2; O2SAT 100
--- NOTE | 2023-10-09 12:41 | CRLHL7_ITS ---
For Patients: As a result of the Century Cures Act, medical imaging exams and procedure reports are released immediately into your electronic medical record. You may view this report before your referring provider. If you have questions, please contact your health care provider. INDICATION: Fall. COMPARISON: Same-day head CT. TECHNIQUE: CT of the cervical spine without contrast. Multiplanar axial, coronal, and sagittal reformats were reconstructed. FINDINGS: No fracture or dislocation. Minimal anterolisthesis C2 on C3. Minimal retrolisthesis C3 on C4. Mild anterolisthesis C4 on C5. Minimal retrolisthesis C5 on C6. Straightening of the normal cervical lordosis. Multilevel disc degenerative change. Multilevel facet degenerative change. Multilevel neural foraminal stenosis. No severe central canal stenosis. No focal bony lesions. Atherosclerotic vascular calcifications. Bilateral thyroid nodules. The right nodule measures 1.4 c. asymmetric right apical coarse scar tissue with coarse calcification. IMPRESSION: 1. No acute or traumatic finding in the cervical spine. 2. Multilevel degenerative change in the cervical spine. 3. Bilateral thyroid nodules. Consider outpatient thyroid ultrasound. Please note that all CT scans at this facility use dose modulation, iterative reconstruction, and/or weight-based dosing when appropriate to reduce radiation dose to as low as reasonably achievable. Dictated by Jaycee Lee MD @ 10/09/2023 1:21:22 PM (Electronically Signed)
--- NOTE | 2023-10-09 12:41 | CRLHL7_ITS ---
For Patients: As a result of the Century Cures Act, medical imaging exams and procedure reports are released immediately into your electronic medical record. You may view this report before your referring provider. If you have questions, please contact your health care provider. INDICATION: Fall. COMPARISON: MRI 07/15/2023, CT head 01/07/2023 TECHNIQUE: CT of the brain/head without the use of IV contrast. Multiplanar axial, coronal, and sagittal reformats were reconstructed. FINDINGS: Normal marr-white matter differentiation throughout. No intracranial hemorrhage. No mass, mass effect, or midline shift. Mildly dilated lateral and 3rd ventricles relative to the degree of parenchymal volume loss. Appearance is similar to the prior MRI. No calvarial fracture or focal calvarial osseous lesion. Bilateral nasal bone fractures. The nasal bones are displaced from the frontal process bilaterally. Adjacent soft tissue swelling and deep subcutaneous emphysema with laceration. The mastoid and middle ears are clear. The paranasal sinuses are clear. Included orbit and globe are normal. IMPRESSION: 1. No acute intracranial hemorrhage. 2. Bilateral nasal bone fractures with dissociation of the nasofrontal suture bilaterally. Associated soft tissue laceration and contusion. 3. 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 Please note that all CT scans at this facility use dose modulation, iterative reconstruction, and/or weight-based dosing when appropriate to reduce radiation dose to as low as reasonably achievable. Dictated by Jaycee Lee MD @ 10/09/2023 1:17:14 PM (Electronically Signed)
--- NOTE | 2023-10-09 13:59 | CRLHL7_ITS ---
For Patients: As a result of the Century Cures Act, medical imaging exams and procedure reports are released immediately into your electronic medical record. You may view this report before your referring provider. If you have questions, please contact your health care provider. Indication: Injury Technique: A total of three views of the right hand were acquired. Comparison: None Findings: Bones: Demineralized osseous structures. No fracture identified. Joint spaces: Dislocation at the PIP of the right index finger. The dislocation is toward the dorsal and the ulnar side. Significant osteoarthritis especially involving the 1st ray. Soft tissues: Soft tissue swelling Impression: 1. Dislocation at the PIP of the right index finger. This is a dorsal and ulnar sided dislocation. Recommend a postreduction three-view study of the index finger to include a true lateral view. 2. Demineralization. Osteoarthritis especially involving the 1st ray. Dictated by Elder Chavira MD @ 10/09/2023 2:27:46 PM (Electronically Signed)
--- NOTE | 2023-10-09 14:52 | ED.FALL ---
HPI - Fall General Chief Complaint: Fall/Minor Trauma Stated Complaint: Fell last night, face/hand lacs Time Seen by Provider: 10/09/23 11:42 History of Present Illness HPI Narrative: Patient is 82-year-old woman who got up to use the restroom last night and fell in the corner of her dresser. She did not lose consciousness she actually got up went back to bed although she has a star laceration at the right upper portion of her nose extending in to her brow. She also feels like she injured her right hand radiograph herself and does have a skin tear across the palm of her hand near the thumb. Patient is brought in today by her son uncertain whether her tetanus shot is current. Patient neurologically is been functioning normally. She is very disappointed as she was to have a revision of her left total hip arthroplasty early next week. Patient otherwise states she feels fine. Her records were reviewed. Related Data Home Medications Medication Instructions Recorded Confirmed acetaminophen 500 mg tablet 500 mg PO Q6H PRN 07/17/22 10/09/23 (Tylenol Extra Strength) aspirin 325 mg tablet 325 mg PO QDAY PRN 07/17/22 06/30/23 calcium carbonate 600 mg-vitamin cap PO 07/17/22 07/07/23 D3 10 mcg (400 unit) capsule [id number] 8 mg-folic 400 1 tab PO QDAY 07/17/22 10/09/23 mcg-K 50 mcg-lutein 300 mcg tablet (Centrum Silver Women) ibuprofen 200 mg tablet 200 mg PO Q6H PRN 07/07/23 10/09/23 Previous Rx's Medication Instructions Recorded albuterol sulfate 90 mcg/actuation 1 puff inhalation Q4H PRN 07/17/22 aerosol inhaler (ProAir HFA) shortness of breath or wheezing #8.5 grams amoxicillin 500 mg capsule 2,000 mg (4 x 500 mg) PO QDAY PRN 07/17/22 dental prophylaxis #12 caps sertraline 50 mg tablet 50 mg PO QDAY #30 tabs 01/02/23 metoprolol succinate 25 mg 12.5 mg (1/2 x 25 mg) PO BID #90 01/30/23 tablet,extended release 24 hr tabs atorvastatin 10 mg tablet 10 mg PO QPM #90 tabs 02/20/23 food supplemt, lactose-reduced 1 ea PO TIDWMEAL #1,656 mL 06/30/23 (Ensure Active High Protein oral liquid) losartan 25 mg tablet 25 mg PO QDAY #90 tabs 10/01/23 amoxicillin 500 mg capsule 500 mg PO Q8H Wound #20 caps 10/09/23 Allergies Allergy/AdvReac Type Severity Reaction Status Date / Time nickel Allergy Mild Rash Verified 10/09/23 11:30 oxycodone Allergy Mild Rash, Verified 10/09/23 11:30 itching severe Review of Systems Status of ROS: Reports: 10 or more systems reviewed and unremarkable except as noted in History and below 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) ?G56.20 - Lesion of ulnar nerve, unspecified upper limb (ICD-10) Traumatic pneumohemothorax ?S27.2XXA - Traumatic hemopneumothorax, initial encounter (ICD-10) Closed fracture of multiple ribs (04/27/13) ?S22.49XA - Multiple fractures of ribs, unspecified side, initial encounter for closed fracture (ICD-10) Carpal tunnel syndrome (08/06/11) ?G56.00 - Carpal tunnel syndrome, unspecified upper limb (ICD-10) Surgical History Status post hip surgery (04/03/23) ?Z98.890 - Other specified postprocedural states (ICD-10) Status post left foot surgery (02/06/07) ?Z98.890 - Other specified postprocedural states (ICD-10) Status post hardware removal (12/18/07) ?Z98.890 - Other specified postprocedural states (ICD-10) S/P foot surgery, right (02/26/08) ?Z98.890 - Other specified postprocedural states (ICD-10) Status post hardware removal (06/10/08) ?Z98.890 - Other specified postprocedural states (ICD-10) Status post bunionectomy (08/06/11) ?Z98.890 - Other specified postprocedural states (ICD-10) History of total knee replacement (05/01/10) ?Z96.659 - Presence of unspecified artificial knee joint (ICD-10) History of total hip replacement (~2000) ?Z96.649 - Presence of unspecified artificial hip joint (ICD-10) History of right shoulder replacement ?Z96.611 - Presence of right artificial shoulder joint (ICD-10) History of repair of rotator cuff (08/06/11) ?Z98.890 - Other specified postprocedural states (ICD-10) History of nasal septoplasty (08/06/11) ?Z98.890 - Other specified postprocedural states (ICD-10) History of colonoscopy ?Z98.890 - Other specified postprocedural states (ICD-10) History of breast biopsy ?Z98.890 - Other specified postprocedural states (ICD-10) History of bilateral cataract extraction ?Z98.41 - Cataract extraction status, right eye (ICD-10) ?Z98.42 - Cataract extraction status, left eye (ICD-10) Family History Other Alzheimers disease CHF (congestive heart failure) Social History Narrative: Non-smoker Smoking Status: Former smoker Do you use any of these nicotine containing products: None Second hand tobacco smoke exposure: No How often do you have a drink containing alcohol: 4 or more times a week How many standard drinks containing alcohol do you have on a typical day: 1 or 2 How often do you have six or more drinks on one occasion: Never AUDIT-C Alcohol total score: 4 Non-prescribed substance use: denies use Little interest or pleasure in doing things: several days Feeling down, depressed, or hopeless: several days service: No Exam Narrative: Exam Narrative: EXAM GENERAL: Patient appears comfortable and well. EYES: No scleral icterus. ENT: Tympanic membranes and oropharynx normal. THYROID: no thyroid nodules or thyromegaly. LYMPH: No supraclavicular or cervical lymphadenopathy. SKIN: Patient has complex star laceration extending from the bridge of the nose superiorly into the right orbit and up into the brow. Total length approximately 6 cm. Similarly patient has a linear laceration over the home approximately 6 cm in laceration with no underlying and deformities of ligaments. 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 EXT: No dependent lower extremity pedal edema. HEART: 2/6 systolic murmur. LUNGS: Clear to auscultation bilaterally with no crackles or wheezes. ABD: Soft, non tender, non distended. PSYCH: Good eye contact, speech is not pressured. Const: Vital Signs, click to edit/add: Vital Signs - 24 hr 10/09/23 11:26 Temperature 98.9 F Pulse Rate [Right Pulse Oximeter] 103 H Respiratory Rate 18 Blood Pressure [Ri ght Upper Arm] 136/77 Pulse Oximetry 100 Oxygen Delivery Me thod Room Air Course Course ED Course: Patient seen examined. Head and neck CT are without acute intracranial abnormalities however complex some nasal fracture noted.. 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 No fractures upon my review. After explaining the risks and benefits of the procedure I did aggressively irrigate all lacerations. 1% lidocaine without epinephrine was injected into all lacerations. I closed the facial laceration with proximally 7 3-0 Ethilon sutures. The hand laceration was closed with 6 running 3-0 Ethilon sutures. All wounds were dressed. I did review her x-ray of her hand and she does have a chronic dislocation which she states was present for 6 months of 2nd digit. This is a swollen and she states this is unchanged after the injury. Due to the hand laceration the complexity of the nasal fracture seen on CT scan I did discuss the case with your nose and throat. We placed on amoxicillin will follow-up with Dr. Lashon Eng. This coming Friday. I have encouraged her to cancel her hip surgery for next week. Did update her tetanus shot. We have his planed wound care to her. Vital Signs Vital signs: Initial Vital Signs Temperature 98.9 F 10/09/23 11:26 Temperature Source Temporal Artery Scan 10/09/23 11:26 Pulse Rate 103 H 11/16/23 11:26 Pulse Rhythm Regular 10/09/23 11:26 Respiratory Rate 18 10/09/23 11:26 Blood Pressure 136/77 10/09/23 11:26 Blood Pressure Mean 96 10/09/23 11:26 Blood Pressure Position Sitting 10/09/23 11:26 Pulse Oximetry 100 10/09/23 11:26 Oxygen Delivery Method Room Air 10/09/23 11:26 Vital Signs Temperature 98.9 F 10/09/23 11:26 Pulse Rate 103 H 10/09/23 11:26 Respiratory Rate 18 10/09/23 11:26 Blood Pressure 136/77 10/09/23 11:26 Pulse Oximetry 100 10/09/23 11:26 Oxygen Delivery Method Room Air 10/09/23 11:26 Temperature 98.9 F 10/09/23 11:26 Pulse Rate 103 H 10/09/23 11:26 Respiratory Rate 18 10/09/23 11:26 Blood Pressure 136/77 10/09/23 11:26 Pulse Oximetry 100 10/09/23 11:26 Oxygen Delivery Method Room Air 10/09/23 11:26 MDM - Fall MDM Narrative Medical decision making narrative: As above Discharge Plan Discharge Clinical Impression: Fracture of nasal bone, Laceration Patient Disposition: Home w/ Parent or Adult Condition: Stable Instructions: Laceration (ED), Facial Fracture (ED) Additional Instructions: Daily dressing changes on lacerations. Amoxicillin as prescribed Follow-up with your nose and throat next Friday Cancel orthopedic surgery Tylenol Motrin Follow-up with your doctor in 1 week to reassess sutures. Activity Level: No Restrictions Discharge Diet: Regular Prescriptions: New amoxicillin 500 mg capsule 500 mg PO Q8H Qty: 20 0RF No Action aspirin 325 mg tablet 325 mg PO QDAY PRN acetaminophen [Tylenol Extra Strength] 500 mg tablet 500 mg PO Q6H PRN calcium carbonate-vitamin D3 600 mg-10 mcg (400 unit) capsule PO Centrum Silver Women 8 mg iron-400 mcg-300 mcg tablet 1 tab PO QDAY albuterol sulfate [ProAir HFA] 90 mcg/actuation HFA aerosol inhaler 1 puff inhalation Q4H PRN (Reason: shortness of breath or wheezing) Qty: 8.5 1RF amoxicillin 500 mg capsule 2,000 mg PO QDAY PRN (Reason: dental prophylaxis) Qty: 12 2RF sertraline 50 mg tablet 50 mg PO QDAY Qty: 30 3RF metoprolol succinate 25 mg tablet extended release 24 hr 12.5 mg PO BID Qty: 90 3RF Ensure Active High Protein Liquid 1 ea PO TIDWMEAL Qty: 1656 3RF ibuprofen 200 mg tablet 200 mg PO Q6H PRN atorvastatin 10 mg tablet 10 mg PO QPM Qty: 90 4RF losartan 25 mg tablet 25 mg PO QDAY Qty: 90 0RF Follow Up/Referrals: Ana Parekh DO [Primary Care Provider] - Stand Alone Forms: My[facility] Info Instructions
== END 2023-10-09 15:21 | disposition home or self-care (01) ==
PROVIDERS: Emergency Provider Internal Medicine; PCP Family Medicine
DX: S02.2XXA Fracture of nasal bones, initial encounter for closed fracture (principal); S01.21XA Laceration without foreign body of nose, initial encounter; W18.30XA Fall on same level, unspecified, initial encounter
CPT/HCPCS: 12013; 70450; 72125; 73130; 99283

== ENCOUNTER 2023-11-05 09:46 | Outpatient (CLI) | payer MEDICARE, BC, SELFPAY | END 2023-11-05 09:47 | disposition home or self-care (01) | PROVIDERS: PCP Family Medicine; Visit Provider Family Medicine | DX: Z01.818 Encounter for other preprocedural examination (principal); E78.5 Hyperlipidemia, unspecified; I10 Essential (primary) hypertension; E87.1 Hypo-osmolality and hyponatremia | CPT/HCPCS: 80053; 80061; 82043; 82570 ==

== ENCOUNTER 2024-12-06 09:58 | Outpatient (CLI) | payer MEDICARE, BC, SELFPAY | END 2024-12-06 09:59 | disposition home or self-care (01) | LOC: FRMREF 10:07 | PROVIDERS: PCP Family Medicine; Visit Provider Family Medicine | DX: I10 Essential (primary) hypertension (principal) | CPT/HCPCS: 80053 ==

== ENCOUNTER 2024-12-15 09:05 | Outpatient (CLI) | payer MEDICARE, BC, SELFPAY | END 2024-12-15 09:06 | disposition home or self-care (01) | LOC: NFLDREF 12-24 08:25 | PROVIDERS: PCP Family Medicine; Referring Provider Family Medicine; Visit Provider Family Medicine | DX: E87.1 Hypo-osmolality and hyponatremia (principal); E83.52 Hypercalcemia | CPT/HCPCS: 80048; 82306; 82397; 83970 ==

== ENCOUNTER 2024-12-22 12:52 | Outpatient (CLI) | payer MEDICARE, BC, SELFPAY | END 2024-12-22 12:53 | disposition home or self-care (01) | LOC: US 12:55 | PROVIDERS: PCP Family Medicine; Visit Provider Family Medicine | DX: Z13.6 Encounter for screening for cardiovascular disorders (principal); Z87.891 Personal history of nicotine dependence; M85.80 Other specified disorders of bone density and structure, unspecified site; Z78.0 Asymptomatic menopausal state | CPT/HCPCS: 76706; 77080 ==

== ENCOUNTER 2024-12-24 12:43 | Outpatient (CLI) | payer MEDICARE, BC, SELFPAY ==
--- NOTE | 2024-12-24 13:00 | CRLHL7_ITS ---
For Patients: As a result of the Century Cures Act, medical imaging exams and procedure reports are released immediately into your electronic medical record. You may view this report before your referring provider. If you have questions, please contact your health care provider. BILATERAL SCREENING MAMMOGRAM WITH COMPUTER-AIDED DETECTION AND TOMOSYNTHESIS TECHNIQUE: CC and MLO views were obtained. These mammographic images have been obtained using full-field digital technique. These mammographic images were interpreted with the benefit of computer-aided detection. Breast Tomosynthesis was used in this interpretation. COMPARISON FILM: 09/26/22, 08/17/21, 08/16/20. FINDINGS: There are scattered areas of fibroglandular density. IMPRESSION: There is no radiographic evidence for malignancy. ASSESSMENT: BI-RADS Category 2: Benign RECOMMENDATION: Routine screening mammogram in 1 year. A lay language report of this examination will be provided to the patient. Daniel Dent M.D. Diagnostic Radiologist [email or web address] SP/Dictated by: Daniel Dent MD @ 12/27/2024 8:40:00 AM (Electronically Signed)
== END 2024-12-24 12:44 | disposition home or self-care (01) ==
LOC: MAMMO 12:43
PROVIDERS: PCP Family Medicine; Visit Provider Family Medicine
DX: Z12.31 Encounter for screening mammogram for malignant neoplasm of breast (principal)
CPT/HCPCS: 77063; 77067

== ENCOUNTER 2025-06-06 09:48 | Outpatient (CLI) | payer MEDICARE, BC, SELFPAY | END 2025-06-06 09:49 | disposition home or self-care (01) | PROVIDERS: PCP Family Medicine; Visit Provider Family Medicine | DX: E83.52 Hypercalcemia (principal); E87.1 Hypo-osmolality and hyponatremia; F10.90 Alcohol use, unspecified, uncomplicated | CPT/HCPCS: 80053 ==

== ENCOUNTER 2025-06-14 09:30 | Outpatient (CLI) | payer MEDICARE, BC, SELFPAY | END 2025-06-14 09:31 | disposition home or self-care (01) | LOC: NFLDREF 06-16 02:07 | PROVIDERS: PCP Family Medicine; Referring Provider Family Medicine; Visit Provider Family Medicine | DX: E87.1 Hypo-osmolality and hyponatremia (principal); E83.52 Hypercalcemia | CPT/HCPCS: 80053 ==